=== PATIENT | female | born 1990 | race Caucasian/White ===

== ENCOUNTER 2018-02-10 00:03 | Emergency (ER) | payer SELFPAY ==
[2018-02-10 00:12] VITALS: BP 120/59
[2018-02-10] MEDS ORDERED: IBUPROFEN 600 MG TABLET PO ONE (00:54)
--- NOTE | 2018-02-10 00:57 | ER Document Report ---
ED Extremity Problem, Lower - General Chief Complaint: Foot Injury Stated Complaint: RIGHT FOOT INJURY Time Seen by Provider: 02/10/18 00:15 Mode of Arrival: Ambulatory Information source: Patient TRAVEL OUTSIDE OF THE [place] IN LAST 30 DAYS: No - HPI Patient complains to provider of: Injury Location: Great Toe Notes: Patient here with complaints of right great toe pain. The patient states she was at [facility] and accidentally dropped a 25 pound pale of kidney later on her right foot while she was wearing flip-flops. She has an injury at the base of her right great toenail. Tetanus is up-to-date. No numbness, tingling, weakness. Pain is worse with touching the area as well as ambulation. No fever. She denies any nausea, vomiting, diarrhea. No chest pain or shortness of breath. No other injury or complaints at this time. - Related Data Allergies/Adverse Reactions: Cephalosporins Allergy (Verified 01/03/16 13:48) doxycycline [Doxycycline] Allergy (Verified 01/03/16 13:48) erythromycin base [Erythromycin Base] Allergy (Verified 01/03/16 13:48) Penicillins Allergy (Verified 01/03/16 13:48) Past Medical History - Social History Smoking Status: Unknown if Ever Smoked Family History: Reviewed & Not Pertinent Psychiatric Medical History: Reports: Hx Depression - Immunizations Immunizations up to date: Yes Hx Diphtheria, Pertussis, Tetanus Vaccination: Yes Review of Systems - Review of Systems -: Yes All other systems reviewed and negative Physical Exam - Vital signs Vitals: Temp Pulse Resp BP Pulse Ox 97.9 F 71 15 120/59 L 99 02/10/18 00:11 02/10/18 00:11 02/10/18 00:11 02/10/18 00:11 02/10/18 00:11 - Notes Notes: GENERAL: alert, cooperative, nontoxic, no distress. HEAD: normocephalic, atraumatic EYES: conjunctiva pink without discharge, no external redness or swelling. EARS: no external swelling, no external redness NOSE: atraumatic, no external swelling MOUTH/THROAT: mucous membranes moist and pink NECK: soft, supple, full range of motion, no meningismus. CHEST: no distress, lungs clear and equal throughout. No wheezing, rales, rhonchi. CARDIAC: regular rate and rhythm, no murmur, normal capillary refill, normal pulses. BACK: full range of motion, no CVA tenderness. EXTREMITIES: full range of motion of all extremities. Superficial abrasion at the base of the right great toenail. No toenail injury. No subungual hematoma. Tenderness to palpation of the right great toe. Full range of motion. Normal cap refill and sensation distally. Remainder the foot exam is unremarkable. Normal pulse and sensation. NEURO: alert and oriented 3, no focal deficits, full range of motion of all extremities. PYSCH: appropriate mood, affect. Patient is cooperative. SKIN: pink, warm, dry, no rash. Course - Re-evaluation Re-evalutation: 02/10/18 01:09 Patient is nontoxic appearing with stable vitals. She is here with complaints of right great toe pain after dropping a 25 pound chelator pale on her toe. She is a superficial abrasion. Her immunizations are up-to-date. She is normal neurovascular exam. X-rays show no acute fracture per the radiologist. The patient will be given a postop shoe to wear as needed for comfort. She is instructed to keep the wound clean and dry. Wear shoe as needed for comfort. Rest, ice, elevate. Follow-up if not better in 1 week, sooner for worsening pain, fever, redness, drainage, numbness, tingling, weakness, any further concerns. The patient's emergency department workup and current diagnosis were explained to the patient and or family. Follow-up instructions were provided. Medications if prescribed were discussed. Instructions for when to return to the emergency department including specific worrisome symptoms were discussed with the patient and/or family. - Vital Signs Vital signs: Temp Pulse Resp BP Pulse Ox 97.9 F 71 15 120/59 L 99 02/10/18 00:11 02/10/18 00:11 02/10/18 00:11 02/10/18 00:11 02/10/18 00:11 - Diagnostic Test Radiology reviewed: Image reviewed, Reports reviewed - Negative right foot Procedures - Immobilization Right foot Pre-Proc Neuro Vasc Exam: Normal Immobilizer type: Post-op shoe Performed by: VASILIY Post-Proc Neuro Vasc Exam: Normal Alignment checked and good: Yes Discharge - Discharge Clinical Impression: Contusion of right great toe without damage to nail Qualifiers: Encounter type: initial encounter Qualified Code(s): S90.111A - Contusion of right great toe without damage to nail, initial encounter Condition: Stable Disposition: HOME, SELF-CARE Instructions: Stubbed Toe ([facility]), Contusion ([facility]), Abrasions ([facility]) Additional Instructions: Keep wound clean and dry. Wear shoe as needed for comfort. Take medications as prescribed for pain. You may also take Tylenol as needed for pain. Follow- up if not better in 1 week, sooner for worsening pain, fever, redness, drainage , numbness, tingling, weakness, any further concerns. Prescriptions: Naproxen [Naprosyn] 500 mg PO BID #20 tablet Forms: Elevated Blood Pressure, Smoking Cessation Education, Return to Work Referrals: [facility] [Provider Group] - Follow up as needed
--- NOTE | 2018-02-10 01:00 | RADIOLOGY REPORT (SQ) ---
EXAM DESCRIPTION: XR FOOT 3 OR MORE VIEWS CLINICAL HISTORY: 27 years Female, Pain s/p injury COMPARISON: None. Findings: Bones, joints, and soft tissues of the XR FOOT 3 VIEWS appear intact. Bipartite tibial sesamoid. IMPRESSION: No acute findings.
== END 2018-02-10 02:04 | disposition home or self-care (01) ==
LOC: ER 00:03
DX: S90.111A Contusion of right great toe without damage to nail, initial encounter (principal); M79.674 Pain in right toe(s); W22.8XXA Striking against or struck by other objects, initial encounter
CPT/HCPCS: 99283

== ENCOUNTER → 2018-07-21 | Outpatient (CLI) | payer BC ==
--- NOTE | 2018-07-21 12:49 | RADIOLOGY REPORT (SQ) ---
EXAM DESCRIPTION: NM HIDA SCAN WITH CCK COMPLETED DATE/TIME: 07/21/2018 11:31 am REASON FOR STUDY: ABD PAIN (R10.9) R10.9 UNSPECIFIED ABDOMINAL PAIN COMPARISON: 08/28/2013. RADIONUCLIDE AND DOSE: DOSAGE RADIONUCLIDE: 5.36 millicuries Tc99m Mebrofenin. DOSAGE CCK: 1.9 micrograms. DOSAGE MORPHINE: Not required. The route of agent administration: Intravenous TECHNIQUE: Serial imaging right upper quadrant up to 60 minutes following injection of radionuclide. CCK injected after gallbladder visualized. LIMITATIONS: None. FINDINGS: LIVER: Normal visualization without areas of photopenia. INTRAHEPATIC BILE DUCTS: Normal size and no delay in visualization. COMMON BILE DUCT: Normal without dilatation. GALLBLADDER: Normal visualization. Calculated ejection fraction of 41%. Normal range is greater th an 35%. PHYSICAL RESPONSE: Patients presenting complaint was not reproduced. OTHER: No other significant finding. IMPRESSION: NORMAL STUDY WITHOUT CYSTIC OR COMMON DUCT OBSTRUCTION. NORMAL GALLBLADDER EJECTION FRA CTION. NO EVIDENCE FOR BILIARY DYSKINESIS. TECHNICAL DOCUMENTATION: JOB ID: [id number] [employer]- All Rights Reserved Reading location - IP/workstation name: [facility]
== END ==
LOC: RAD 07:27
PROVIDERS: ATTEND Internal Medicine Gastroenterology
DX: R10.9 Unspecified abdominal pain (principal)
CPT/HCPCS: 78227; J2805; A9537; Q9969

== ENCOUNTER 2020-10-10 16:22 | Emergency (ER) | payer SELFPAY ==
--- NOTE | 2020-10-10 17:15 | ER Document Report ---
ED Medical Screen (RME) - General Chief Complaint: Flank Pain Stated Complaint: FLANK PAIN Time Seen by Provider: 10/10/20 17:08 Primary Care Provider: DEYA MONTALVO MD [Primary Care Provider] - Follow up as needed TRAVEL OUTSIDE OF THE [place] IN LAST 30 DAYS: No - HPI Notes: Patient is a 30-year-old female with no medical history who presents with left flank pain, nausea and hematuria that began today. Patient states for the past month she has had dysuria, urinary frequency, urinary urgency, and abdominal cramping. She believes she has had a UTI this whole time but has not seek treatment as she is uninsured. Patient states her insurance goes into effect on 10/17/2020. Patient had a telemed visit today and was prescribed Bactrim. She took her first dose this morning. She denies fever and vomiting. - Related Data Allergies/Adverse Reactions: Cephalosporins Allergy (Verified 10/10/20 17:07) doxycycline [Doxycycline] Allergy (Verified 10/10/20 17:07) erythromycin base [Erythromycin Base] Allergy (Verified 10/10/20 17:07) Penicillins Allergy (Verified 10/10/20 17:07) Past Medical History Renal/ Medical History: Denies: Hx Peritoneal Dialysis Psychiatric Medical History: Reports: Hx Anxiety, Hx Depression - Immunizations Immunizations up to date: Yes Hx Diphtheria, Pertussis, Tetanus Vaccination: Yes Physical Exam - Vital signs Vitals: Temp Pulse Resp BP Pulse Ox 98.4 F 80 20 130/62 H 100 10/10/20 16:36 10/10/20 16:36 10/10/20 16:36 10/10/20 16:36 10/10/20 16:36 - Abdominal Tenderness: Nontender - Back Back: CVA tenderness Course - Re-evaluation Re-evalutation: I have greeted and performed a rapid initial assessment of this patient. A comprehensive ED assessment and evaluation of the patient, analysis of test results and completion of medical decision making process will be conducted by an additional ED providers. - Vital Signs Vital signs: Temp Pulse Resp BP Pulse Ox 98.4 F 80 20 130/62 H 100 10/10/20 16:36 10/10/20 16:36 10/10/20 16:36 10/10/20 16:36 10/10/20 16:36 Doctor's Discharge - Discharge Referrals: DEYA MONTALVO MD [Primary Care Provider] - Follow up as needed
[2020-10-10 17:32] LABS: ABSOLUTE BASOPHILS # (AUTO) 0.1 10^3/uL (0.0-0.2); ABSOLUTE EOSINOPHILS # (AUTO) 0.1 10^3/uL (0.0-0.6); ABSOLUTE LYMPHOCYTES (AUTO) 2.5 10^3/uL (0.5-4.7); ABSOLUTE MONOCYTES (AUTO) 0.6 10^3/uL (0.1-1.4); ABSOLUTE NEUT (AUTO) 5.3 10^3/uL (1.7-8.2); BASOPHILS % (AUTO) 0.9 % (0-2); EOSINOPHILS % (AUTO) 0.9 % (0-6); HEMATOCRIT 40.5 % (36.0-47.0); HEMOGLOBIN 13.7 g/dL (12.0-15.5); LYMPHOCYTES % (AUTO) 29.5 % (13-45); MEAN CORPUSCULAR HEMOGLOBIN 29.1 pg (27.0-33.4); MEAN CORPUSCULAR HGB CONC 33.8 g/dL (32.0-36.0); MEAN CORPUSCULAR VOLUME 86 fl (80-97); MONOCYTES % (AUTO) 6.6 % (3-13); PLATELET COUNT 283 10^3/uL (150-450); RED CELL DISTRIBUTION WIDTH 13.5 % (11.5-14.0); SEGMENTED NEUTROPHILS % (AUTO) 62.1 % (42-78); TOTAL CELLS COUNTED % (AUTO) 100 %; WHITE BLOOD COUNT 8.5 10^3/uL (4.0-10.5)
[2020-10-10 17:38] LABS: APPEARANCE,URINE CLEAR; BILIRUBIN,URINE NEGATIVE (NEGATIVE); COLOR,URINE AMBER; GLUCOSE, URINE NEGATIVE (NEGATIVE); KETONES,URINE NEGATIVE (NEGATIVE); LEUKOCYTE ESTERASE,URINE NEGATIVE (NEGATIVE); NITRITE,URINE POSITIVE (NEGATIVE); PROTEIN,URINE NEGATIVE (NEGATIVE); URINE SPECIFIC GRAVITY 1.004
[2020-10-10 17:54] LABS: ALBUMIN 4.4 g/dL (3.5-5.0); ALKALINE PHOSPHATASE 74 U/L (38-126); ANION GAP 9 (5-19); ASPARTATE AMINO TRANSFERASE 47 U/L (14-36); BILIRUBIN,DIRECT 0.1 mg/dL (0.0-0.4); BILIRUBIN,TOTAL 0.4 mg/dL (0.2-1.3); BLOOD UREA NITROGEN 11 mg/dL (7-20); CALCIUM 9.7 mg/dL (8.4-10.2); CARBON DIOXIDE 20 mmol/L (22-30); CHLORIDE 112 mmol/L (98-107); GLUCOSE 87 mg/dL (75-110); POTASSIUM 4.4 mmol/L (3.6-5.0); TOTAL PROTEIN 7.5 g/dL (6.3-8.2)
--- NOTE | 2020-10-10 19:59 | ER Document Report ---
ED General - General Chief Complaint: Flank Pain Stated Complaint: FLANK PAIN Time Seen by Provider: 10/10/20 17:08 Primary Care Provider: DEYA MONTALVO MD [ACTIVE STAFF] - Follow up as needed TRAVEL OUTSIDE OF THE [place] IN LAST 30 DAYS: No - HPI Notes: Patient is a 30-year-old female who presents emergency department for evaluation. She is had about a month of suprapubic pain and pressure, dysuria. She did not have insurance, so she kept putting off being evaluated. Today she had a telehealth visit, was called in a prescription for Bactrim. She took 1 dose, and about an hour later noticed gross hematuria, so she presents to the emergency department for evaluation. She states that over the last 24 hours she has had an increase in lower back pain, started on her left flank, now it is in bilateral flanks. She said no fevers or chills. Some very mild nausea but no vomiting. Normal bowel movements. She denies any vaginal discharge, no history of STI. She is not sexually active. - Related Data Allergies/Adverse Reactions: Cephalosporins Allergy (Verified 10/10/20 17:07) doxycycline [Doxycycline] Allergy (Verified 10/10/20 17:07) erythromycin base [Erythromycin Base] Allergy (Verified 10/10/20 17:07) Penicillins Allergy (Verified 10/10/20 17:07) Past Medical History - General Information source: Patient - Social History Smoking Status: Current Every Day Smoker Family History: Reviewed & Not Pertinent - Medical History Medical History: Other - HLA-B27 Neurological Medical History: Reports: Hx Migraine Renal/ Medical History: Denies: Hx Peritoneal Dialysis GI Medical History: Reports: Hx Irritable Bowel Psychiatric Medical History: Reports: Hx Anxiety, Hx Depression - Immunizations Immunizations up to date: Yes Hx Diphtheria, Pertussis, Tetanus Vaccination: Yes Review of Systems - Review of Systems Constitutional: No symptoms reported EENT: No symptoms reported Cardiovascular: No symptoms reported Respiratory: No symptoms reported Gastrointestinal: See HPI Genitourinary: See HPI Female Genitourinary: No symptoms reported Musculoskeletal: No symptoms reported Skin: No symptoms reported Neurological/Psychological: No symptoms reported Physical Exam - Vital signs Vitals: Temp Pulse Resp BP Pulse Ox 98.4 F 80 20 130/62 H 100 10/10/20 16:36 10/10/20 16:36 10/10/20 16:36 10/10/20 16:36 10/10/20 16:36 - Notes Notes: Vital signs reviewed, please refer to chart. Head is normocephalic, atraumatic. Pupils equal round, reactive to light. Neck is supple without meningismus. Heart is regular rate and rhythm. Lungs are clear to auscultation bilaterally. Abdomen is soft, very mild suprapubic tenderness without rebound or guarding, normoactive bowel sounds throughout. No CVA tenderness noted. Extremities without cyanosis, clubbing. Posterior calves are nontender. Peripheral pulses are equal. Skin is warm and dry. Patient is awake, alert, neurological exam is nonfocal. Course - Re-evaluation Re-evalutation: 10/10/20 19:59 Patient presents emergency department for evaluation. She has urinary symptoms, a nitrite positive urine, and findings are consistent with a urinary tract infection. Despite her reports of gross hematuria there was no blood in her urine tonight. She has multiple antibiotic allergies. She was just started on Bactrim and does not have insurance currently. I see no reason to change her antibiotic at this time. Her urine was sent for culture, and we will contact her if a different antibiotic is needed. She voiced understanding. Otherwise she is to continue her Bactrim as previously prescribed, return to the ED with worsening or new concerning symptoms of any sort. - Vital Signs Vital signs: Temp Pulse Resp BP Pulse Ox 98.4 F 80 20 130/62 H 100 10/10/20 16:36 10/10/20 16:36 10/10/20 16:36 10/10/20 16:36 10/10/20 16:36 - Laboratory Results Result Diagrams: 10/10/20 17:22 10/10/20 17:22 Laboratory Results Interpreted: 10/10/20 10/10/20 16:35 17:22 Chloride 112 H Carbon Dioxide 20 L AST 47 H ALT 66 H Urine Nitrite POSITIVE H Urine Urobilinogen 4.0 H Critical Laboratory Results Reviewed: No Critical Results - Radiology Results Critical Radiology Results Reviewed: No Critical Results Discharge - Discharge Clinical Impression: Urinary tract infection Qualifiers: Urinary tract infection type: site unspecified Hematuria presence: without hematuria Qualified Code(s): N39.0 - Urinary tract infection, site not specified Condition: Stable Disposition: HOME, SELF-CARE Instructions: Urinary Tract Infection ([facility]), Trimethoprim-Sulfa ([facility]) Additional Instructions: Rest, stay well-hydrated. Take all the antibiotics as prescribed until gone. Your urine has been sent for culture. If the bacteria that grew are resistant to the Bactrim, you will be contacted. If you develop fevers, vomiting, or new or concerning symptoms of any sort, please return immediately to the emergency department for evaluation. Referrals: DEYA MONTALVO MD [ACTIVE STAFF] - Follow up as needed
[2020-10-10 20:31] VITALS: BP 114/77
== END 2020-10-10 20:15 | disposition home or self-care (01) ==
LOC: ER 16:22
DX: N39.0 Urinary tract infection, site not specified (principal); R10.9 Unspecified abdominal pain; R10.2 Pelvic and perineal pain; R30.0 Dysuria; R11.0 Nausea; F17.200 Nicotine dependence, unspecified, uncomplicated; Z88.3 Allergy status to other anti-infective agents; Z88.0 Allergy status to penicillin
CPT/HCPCS: 36415; 80053; 81001; 84703; 85025; 87086; 99283